=== PATIENT | female | born 1980 | race Caucasian/White ===

== ENCOUNTER 2019-04-04 00:16 | Emergency (ER) | payer OTHER, SELFPAY ==
[2019-04-04 00:20] VITALS: BP 126/79; PULSE 94; RESP 18; TEMP 36.9; O2SAT 100; BMI 24.1
--- NOTE | 2019-04-04 00:39 | ED.GENADULT ---
HPI - General Adult General Chief complaint: Nausea/Vomiting/Diarrhea Stated complaint: nausea x1 day Time Seen by Provider: 04/04/19 00:24 Source: patient Mode of arrival: ambulatory Limitations: no limitations History of Present Illness HPI narrative: 38-year-old female who was here for evaluation of 1 episode of nausea and vomiting. She is currently taking antibiotics and antifungal medications for a infection. She started Keflex today. She took her 1st dose of Keflex at approximately 0200 hours this afternoon. Tolerated without any problems. She went to go take her 2nd dose and vomited. The vomiting happen before she took the dose of antibiotics. She is concerned that potentially she was having a reaction to this medication. Related Data Previous Rx's Medication Instructions Recorded lidocaine 1 applictn TOP BID-QID PRN #10 gram 04/04/19 lorazepam [Ativan] 0.5 mg PO BID-TID PRN #14 tab 04/04/19 Allergies Allergy/AdvReac Type Severity Reaction Status Date / Time Opioids - Morphine Analogues AdvReac Verified 04/04/19 00:51 Review of Systems Constitutional Denies fever(s) and Denies headache(s) ENT Ears, Nose, Mouth, and Throat: Denies headache(s) Cardiovascular Denies chest pain and Denies dyspnea Respiratory Denies dyspnea Gastrointestinal Gastrointestinal: Denies abdominal pain, Reports nausea and Reports vomiting Musculoskeletal Denies myalgias and Denies arthralgias Integumentary/Breasts Denies rash Neurologic Denies behavioral changes and Denies headache(s) Psychiatric Denies behavioral changes Hematologic/Lymphatic Denies easy bleeding and Denies easy bruising Allergic/Immunologic Denies urticaria [facility] Medical History (Updated 04/04/19 @ 01:30 by Adonis Mathews DO) Patient denies medical problems (Acute) Social History lives independently: Yes Social History lives independently: Yes Exam Initial Vital Signs Initial Vital Signs: Vital Signs Temperature 98.5 F 04/04/19 00:20 Pulse Rate 94 H 04/04/19 00:20 Respiratory Rate 18 04/04/19 00:20 Blood Pressure 126/79 04/04/19 00:20 Pulse Oximetry 100 04/04/19 00:20 Const General: cooperative, well developed, well groomed and No acute distress Orientation: alert, awake and oriented x3 HENMT Head: normal to inspection and normocephalic Resp Effort & Inspection: normal respiratory effort Auscultation: clear to auscultation bilaterally Cardio Rate: regular rate Rhythm: regular rhythm Skin Lesions: no lesions Rashes: no rashes Neuro General: alert and awake Cognition: normal cognition Speech: speech normal Extrem General: normal to inspection and capillary refill normal Psych Appearance: grossly normal and well kempt Course Orders Ordered: Discontinued Medications Lorazepam (Ativan) 0.5 mg PO NOW ONE Stop: 04/04/19 00:39 Last Admin: 04/04/19 00:46 Dose: 0.5 mg Vital Signs - 8 hr 04/04/19 00:20 Temperature 98.5 F Pulse Rate 94 H Respiratory Rate 18 Blood Pressure 126/79 Pulse Oximetry 100 Medical Decision Making MDM Narrative Medical decision making narrative: Patient was able to tolerate her antibiotic by mouth here in the emergency department. She denied any offer for nausea medication. She states she has side effects to the medicines. I do not think that her vomiting earlier today was the result of these antibiotics. I do not feel like we need to change her antibiotic regiment. She is extremely anxious. She felt somewhat better after the Ativan. Will send her home with a short prescription for this to use as needed. Also sent home with lidocaine jelly to help with the symptoms she will follow up with her primary doctor. She is given return precautions. She expressed understanding and agreement with plan. Discharge Plan Departure Patient Disposition: Home Clinical Impression: Anxiety Vomiting Qualifiers: Vomiting type: unspecified Vomiting Intractability: non-intractable Nausea presence: with nausea Qualified Code(s): R11.2 - Nausea with vomiting, unspecified Instructions: Anxiety and Panic Attacks (Alternative Therapy), DI for Nausea -- Adult Activity Restrictions/Additional Instructions: Continue all of your current medications as directed. Take the new prescriptions were given this evening as directed. Contact your primary provider on Friday for follow-up. Return to the emergency department for any new or worsening symptoms Prescriptions: New lorazepam [Ativan] 1 mg tablet 0.5 mg PO BID-TID PRN (Reason: anxiety) Qty: 14 RF: 0 lidocaine 4 % gel 1 applictn TOP BID-QID PRN (Reason: pain) Qty: 10 RF: 0
[2019-04-04] MEDS: LORazepam 0.5 MG TABLET PO (00:46)
[2019-04-04 01:45] VITALS: BP 120/75; PULSE 85; RESP 16; O2SAT 100
== END 2019-04-04 01:45 | disposition home or self-care (01) ==
PROVIDERS: Emergency Provider Emergency Medicine
DX: F41.9 Anxiety disorder, unspecified (principal); R11.2 Nausea with vomiting, unspecified
CPT/HCPCS: 99282; 99283

== ENCOUNTER → 2019-04-23 08:23 | Outpatient (CLI) | payer OTHER, SELFPAY ==
--- NOTE | 2019-04-23 08:00 | DI.US.S_ITS ---
PATIENT NAME: SAL ZAPIEN : 1980 EXAM DATE: 04/23/2019 8:[address] JOHNNIE PATRICK D.O. CC: MODALITY: US PATIENT TYPE: Out CONTRAST MEDIA: STATION ID: [id number] FLUORO TIME: PROCEDURE: US PELVIC COMPLETE INDICATIONS: PELVIC PAIN TECHNIQUE: Real-time scanning was performed of the pelvic organs, with image documentation. Additional endovaginal scanning was necessary due to incomplete visualization of the adnexal and endometrial structures by transabdominal scanning. COMPARISON: None. FINDINGS: Transabdominal scanning: Limited scanning through the kidneys shows no hydronephrosis. No pathologic free abdominal or pelvic fluid. Endovaginal scanning: Uterus: Uterus is normal in size at 7.0 x 2.6 x 4.1 cm. The endometrium measures 5.1 mm in combined thickness. Ovaries: Ovaries are normal bilaterally measuring 3.7 x 2.1 x 2.3 cm on the right and 3.3 x 2.1 x 1.7 cm on the left. No adnexal masses. IMPRESSION: No source for pelvic pain identified. Dictated by: Levi BASURTO Interpreted: Jazzy Almanzar MD on 04/23/2019 at 10:53 Transcribed by: KATHERIN on 04/23/2019 at 15:01 Approved by: Jazzy Almanzar M.D. on 04/23/2019 at 15:12
== END ==
PROVIDERS: PCP Obstetrics & Gynecology; Visit Provider Obstetrics & Gynecology
DX: R10.2 Pelvic and perineal pain (principal)
CPT/HCPCS: 76830; 76856

== ENCOUNTER → 2019-07-09 13:06 | Outpatient (CLI) | payer OTHER, SELFPAY ==
[2019-07-09 20:00] LABS: Adenovirus F 40/41 Not Detected (Not Detect); Astrovirus Not Detected (Not Detect); Campylobacter Not Detected (Not Detect); Clostridium difficile toxin AB Not Detected (Not Detect); Cryptosporidium Not Detected (Not Detect); Cyclospora cayetanensis Not Detected (Not Detect); Entamoeba histolytica Not Detected (Not Detect); Enteroaggregative E.coli Not Detected (Not Detect); Enteropathogenic E.coli Not Detected (Not Detect); Enterotoxigenic E.coli It/st Not Detected (Not Detect); Giardia lamblia Not Detected (Not Detect); Norovirus GI/GII Not Detected (Not Detect); Plesiomonsa shigelloides Not Detected (Not Detect); Rotavirus A Not Detected (Not Detect); Salmonella Not Detected (Not Detect); Sapovirus Not Detected (Not Detect); Shiga-like toxin-prod E.coli Not Detected (Not Detect); Shigella/Enteroinvasive E.coli Not Detected (Not Detect); Vibrio Not Detected (Not Detect); Vibrio cholerae Not Detected (Not Detect); Yersinia enterocolitica Not Detected (Not Detect)
== END ==
PROVIDERS: PCP Obstetrics & Gynecology; Visit Provider Physician Assistant Medical
DX: Z20.7 Contact with and (suspected) exposure to pediculosis, acariasis and other infestations (principal); R11.0 Nausea
CPT/HCPCS: 87507

== ENCOUNTER 2019-10-17 09:41 | Emergency (ER) | payer OTHER, SELFPAY ==
[2019-10-17 09:53] VITALS: BP 138/78; PULSE 90; RESP 20; TEMP 37.6; O2SAT 100; BMI 21.2
--- NOTE | 2019-10-17 10:39 | ED.ANXIETY ---
HPI - Anxiety General Chief Complaint: Anxiety Stated Complaint: states panic attacks Time Seen by Provider: 10/17/19 09:43 Source: patient and other Mode of arrival: Ambulatory Limitations: no limitations History of Present Illness HPI narrative: 38-year-old female nonsmoker with history of anxiety presents with friend and chief complaint significant anxiety and panic which has been building over the past week. She states that she does have a history of anxiety but that her symptoms of severely ramped up due to stresses at work over the past few weeks. She does have a therapist who is aware and has a primary care provider. She was recently prescribed BuSpar and Catapres which do not seem to be helping. She woke up this morning and felt overwhelmed by her anxiety. She denies any suicidal or homicidal ideations. She has a strong support network of family and friends MD complaint: anxiety, heart racing and shortness of breath Onset (ago): day(s) Severity: moderate Quality: constant Place: home History of similar episodes: Yes Provoking factors: work/job stress Relieving factors: nothing Exacerbating factors: thinking about event Related Data Previous Rx's Medication Instructions Recorded lidocaine 1 applictn TOP BID-QID PRN #10 gram 04/04/19 lorazepam [Ativan] 0.5 mg PO BID-TID PRN #14 tab 04/04/19 Allergies Allergy/AdvReac Type Severity Reaction Status Date / Time Opioids - Morphine Analogues AdvReac Verified 10/17/19 09:53 Review of Systems Constitutional Constitutional: Denies chills, Denies fatigue, Denies fever(s), Denies frequent falls, Denies lethargy and Denies weakness Eyes Eyes: Denies change in vision, Denies eye discharge, Denies irritation and Denies loss of vision ENT Ears, Nose, Mouth, and Throat: Denies change in voice, Denies dizziness, Denies neck pain, Denies sore throat and Denies throat swelling Cardiovascular Cardiovascular: Denies chest pain, Denies irregular heart rhythm, Denies lightheadedness, Reports palpitations, Denies dyspnea, Denies dyspnea on exertion and Denies orthopnea Respiratory Respiratory: Denies cough, Denies dyspnea, Denies dyspnea on exertion and Denies wheezing Gastrointestinal Gastrointestinal: Denies abdominal pain, Denies change in bowel habits, Denies diarrhea, Denies nausea and Denies vomiting Genitourinary Genitourinary: Denies hematuria, Denies flank pain, Denies urinary incontinence and Denies urinary urgency Musculoskeletal Musculoskeletal: Denies back pain, Denies muscle weakness, Denies neck pain, Denies numbness and Denies tingling Integumentary/Breasts Skin/Breast: Denies pruritus, Denies erythema, Denies rash and Denies wounds Neurologic Neurologic: Denies behavioral changes, Denies confusion, Denies dizziness, Denies frequent falls, Denies loss of vision, Denies numbness, Denies tingling and Denies weakness Psychiatric Psychiatric: Denies anxiety, Denies behavioral changes, Denies confusion, Denies depression, Reports panic attacks, Reports paranoia, Denies homicidal ideation and Denies suicidal ideation Endocrine Endocrine: Denies fatigue, Denies flushing and Reports palpitations Hematologic/Lymphatic Hematologic/Lymphatic: Denies easy bruising Allergic/Immunologic Allergic/Immunologic: Denies urticaria, Denies throat swelling and Denies wheezing Patient History Medical History Patient denies medical problems (Acute) Social History lives independently: Yes Smoking Status: Never smoker Smoking Status: Never smoker Substance Use Type: does not use Exam Narrative Exam Narrative: GENERAL: [38] year old patient appears stated age. Well-nourished, well-developed patient, in mild distress. Anxious and tearful but demonstrates good insight and is redirectable HEAD: Atraumatic. Normocephalic. EYES: Pupils equal round and reactive. Extraocular motions intact. No scleral icterus. No injection or drainage. ENT: Nose without bleeding, purulent drainage. Throat without erythema, tonsillar hypertrophy or exudate. Airway patent. NECK: Trachea midline. Non tender CARDIOVASCULAR: Regular rate and rhythm without murmurs, gallops, or rubs. RESPIRATORY: Clear to auscultation. Breath sounds equal bilaterally. No wheezes, rales, or rhonchi. GASTROINTESTINAL: Abdomen soft, non-tender, nondistended. EXTREMITIES: No edema or joint tenderness. BACK: Nontender without deformity or crepitance. No flank tenderness. NEURO: AOx3. SKIN: No rash or erythema of visible areas Initial Vital Signs Initial Vital Signs: Vital Signs Temperature 99.6 F 10/17/19 09:53 Pulse Rate 90 10/17/19 09:53 Respiratory Rate 20 10/17/19 09:53 Blood Pressure 138/78 10/17/19 09:53 Pulse Oximetry 100 10/17/19 09:53 Course Orders Ordered: ED Orders 10/17/19 12:30 Urinalysis and Microscopic Stat Urine Drug Screen, Rapid Stat Discontinued Medications Sodium Chloride (Normal Saline 0.9%) 1,000 mls @ 1,000 mls/hr IV BOLUS ONE Stop: 10/17/19 11:10 Last Infusion: 10/17/19 12:18 Dose: 0 mls/hr Documented by: SHIMASENKay Admin: 10/17/19 10:50 Dose: 1,000 mls/hr Documented by: SHIMASENKay Vital Signs Vital signs: Vital Signs - 8 hr 10/17/19 12:24 Pulse Rate 74 Respiratory Rate 16 Blood Pressure [Right Arm] 118/84 Pulse Oximetry 100 MDM - Anxiety Lab Data Result diagrams: 10/17/19 10:43 10/17/19 10:43 Labs: Lab Results 10/17/19 10/17/19 10/17/19 Range/Units 10:43 10:43 10:43 WBC 4.6 (4.5-11.0) X10^3/uL RBC 5.00 (4.0-5.2) X10^6/uL Hgb 14.7 (12.0-16.0) g/dL Hct 42.3 (36-46) % MCV 84.7 (80-100) fL MCH 29.5 (26-34) PG MCHC 34.8 (30-36) % RDW 12.3 (11.6-14.8) % Plt Count 258 (150-400) X10^3/uL Neut % (Auto) 61.2 (50-75) % Lymph % (Auto) 30.2 (25-40) % [place] % (Auto) 7.2 (3-14) % Eos % (Auto) 0.6 L (2-4) % Baso % (Auto) 0.8 (0-2) % Neut # (Auto) 2800 (6433-2326) /uL Lymph # (Auto) 1400 (3163-9308) /uL [place] # (Auto) 300 (0-900) /uL Eos # (Auto) 0 (0-450) /uL Baso # (Auto) 0 (0-100) /uL Sodium 142 (137-145) mmol/L Potassium 3.5 (3.4-5.1) mmol/L Chloride 105 (98-107) mmol/L Carbon Dioxide 24 (22-32) mmol/L BUN 13 (7-17) mg/dL Creatinine 0.70 (0.52-1.04) mg/dL Estimated GFR > 60.0 (>60) mL/min BUN/Creatinine Ratio 18.6 (6-22) Glucose 99 (70-100) mg/dL Calcium 10.0 (8.4-10.2) mg/dL TSH 1.00 (0.47-4.68) uIU/mL Thyroxine (T4) 9.94 (5.5-11.0) ug/dL Urine Color Urine Appearance Urine pH (4.5-8.0) Ur Specific [place] (1.000-1.035) Urine Protein (Negative) Urine Glucose (UA) (Negative) g/dL Urine Ketones (NEGATIVE) Urine Occult Blood (Negative) Urine Nitrate (Negative) Urine Bilirubin (NEGATIVE) Urine Urobilinogen (0.2) E.U./dL Ur Leukocyte Esterase (NEGATIVE) Urine RBC (0-5/HPF) Urine WBC (0-5/HPF) Ur Squamous Epith Cells (0-5/HPF) Urine Bacteria (None) Ur Culture Indicated? U Opiates 300ng/mL cut (Negative) Ur Oxycodone Screen (Negative) Urine Methadone Screen (Negative) Ur Barbiturates Screen (Negative) U Tricyclic Antidepress (Negative) Ur Phencyclidine Scrn (Negative) Ur Amphetamines Screen (Negative) U Methamphetamines Scrn (Negative) Ur MDMA Scrn (Ecstasy) (Negative) U Benzodiazepines Scrn (Negative) Urine Cocaine Screen (Negative) U Marijuana (THC) Screen (Negative) 10/17/19 10/17/19 Range/Units 12:30 12:30 WBC (4.5-11.0) X10^3/uL RBC (4.0-5.2) X10^6/uL Hgb (12.0-16.0) g/dL Hct (36-46) % MCV (80-100) fL MCH (26-34) PG MCHC (30-36) % RDW (11.6-14.8) % Plt Count (150-400) X10^3/uL Neut % (Auto) (50-75) % Lymph % (Auto) (25-40) % [place] % (Auto) (3-14) % Eos % (Auto) (2-4) % Baso % (Auto) (0-2) % Neut # (Auto) (2026-7036) /uL Lymph # (Auto) (7229-2668) /uL [place] # (Auto) (0-900) /uL Eos # (Auto) (0-450) /uL Baso # (Auto) (0-100) /uL Sodium (137-145) mmol/L Potassium (3.4-5.1) mmol/L Chloride (98-107) mmol/L Carbon Dioxide (22-32) mmol/L BUN (7-17) mg/dL Creatinine (0.52-1.04) mg/dL Estimated GFR (>60) mL/min BUN/Creatinine Ratio (6-22) Glucose (70-100) mg/dL Calcium (8.4-10.2) mg/dL TSH (0.47-4.68) uIU/mL Thyroxine (T4) (5.5-11.0) ug/dL Urine Color Yellow Urine Appearance Clear Urine pH 7.0 (4.5-8.0) Ur Specific [place] <=1.005 (1.000-1.035) Urine Protein Negative (Negative) Urine Glucose (UA) Negative (Negative) g/dL Urine Ketones Negative (NEGATIVE) Urine Occult Blood Negative (Negative) Urine Nitrate Negative (Negative) Urine Bilirubin Negative (NEGATIVE) Urine Urobilinogen 0.2 (0.2) E.U./dL Ur Leukocyte Esterase Negative (NEGATIVE) Urine RBC None seen (0-5/HPF) Urine WBC None seen (0-5/HPF) Ur Squamous Epith Cells 0-1 /hpf (0-5/HPF) Urine Bacteria Occasional (0-1) (None) Ur Culture Indicated? Cult not indicated U Opiates 300ng/mL cut Negative (Negative) Ur Oxycodone Screen Negative (Negative) Urine Methadone Screen Negative (Negative) Ur Barbiturates Screen Negative (Negative) U Tricyclic Antidepress Negative (Negative) Ur Phencyclidine Scrn Negative (Negative) Ur Amphetamines Screen Negative (Negative) U Methamphetamines Scrn Negative (Negative) Ur MDMA Scrn (Ecstasy) Negative (Negative) U Benzodiazepines Scrn Negative (Negative) Urine Cocaine Screen Negative (Negative) U Marijuana (THC) Screen Negative (Negative) Discharge Plan Departure Patient Disposition: Home Clinical Impression: Acute anxiety, Panic disorder Discharge Date/Time: 10/17/19 12:53 Instructions: Anxiety Disorders Activity Restrictions/Additional Instructions: *You have been diagnosed with [ anxiety and panic attack ] *What to do: *Take medications as directed *Follow up with your primary care provider in 2-3 days, call for an appointment. Let them know you were seen in the Emergency Department and that we ask that you be seen in follow up *Return to ER if you should have any new, worsening or concerning symptoms Prescriptions: No Action lorazepam [Ativan] 1 mg tablet 0.5 mg PO BID-TID PRN (Reason: anxiety) Qty: 14 RF: 0 lidocaine 4 % gel 1 applictn TOP BID-QID PRN (Reason: pain) Qty: 10 RF: 0 Referrals: [facility] [Outside] Radha De Guzman DO [Primary Care Provider] - Stand Alone Forms: Work Release Note
[2019-10-17] MEDS: SODIUM CHLORIDE 0.9% 1,000 ML 1000 ML IV (10:50)
[2019-10-17 11:06] LABS: Add Manual Diff / Slide Review NO; Basophils Absolute Auto 0 /uL (0-100); Basophils Percent Auto 0.8 % (0-2); Eosinophils Absolute Auto 0 /uL (0-450); Eosinophils Percent Auto 0.6 % (2-4); Hematocrit 42.3 % (36-46); Hemoglobin 14.7 g/dL (12.0-16.0); Lymphocytes Absolute Auto 1400 /uL (1100-4500); Lymphocytes Percent Auto 30.2 % (25-40); Mean Corpuscular HGB Conc 34.8 % (30-36); Mean Corpuscular Hemoglobin 29.5 PG (26-34); Mean Corpuscular Volume 84.7 fL (80-100); Monocytes Absolute Auto 300 /uL (0-900); Monocytes Percent Auto 7.2 % (3-14); Neutrophils Absolute Auto 2800 /uL (1500-7000); Neutrophils Percent Auto 61.2 % (50-75); Platelet Count 258 X10^3/uL (150-400); Red Cell Distribution Width 12.3 % (11.6-14.8); White Blood Cell Count 4.6 X10^3/uL (4.5-11.0)
[2019-10-17 11:20] VITALS: BP 112/61; PULSE 64; O2SAT 100
[2019-10-17 11:20] LABS: BUN Creatinine Ratio 18.6 (6-22); Blood Urea Nitrogen 13 mg/dL (7-17); Carbon Dioxide 24 mmol/L (22-32); Chloride 105 mmol/L (98-107); Estimated Glomerular Filt Rate > 60.0 mL/min (>60); Glucose 99 mg/dL (70-100); HEMOLYSIS < 15 (0-50); Potassium 3.5 mmol/L (3.4-5.1); Sodium 142 mmol/L (137-145)
[2019-10-17 11:46] LABS: T4 Total Thyroxine 9.94 ug/dL (5.5-11.0)
--- NOTE | 2019-10-17 12:23 | PC.NURSE ---
and now with stomach pain. doesnt feel hungry, +nausea.
[2019-10-17 12:24] VITALS: BP 118/84; PULSE 74; RESP 16; O2SAT 100
[2019-10-17 12:39] LABS: Appearance Urine UA CLEAR; Bilirubin Urine UA NEGATIVE (NEGATIVE); Color Urine UA YELLOW; Glucose Urine UA NEGATIVE (Negative); Ketones Urine UA NEGATIVE (NEGATIVE); Leukocyte Esterase Urine UA NEGATIVE (NEGATIVE); Nitrite Urine UA NEGATIVE (Negative); Occult Blood Urine UA NEGATIVE (Negative); Protein Urine UA NEGATIVE (Negative); RBC Urine None Seen (0-5/HPF); Specific Gravity Urine UA <=1.005 (1.000-1.035); Urobilinogen Urine UA 0.2 E.U./dL (0.2); WBC Urine None Seen (0-5/HPF)
[2019-10-17 12:43] LABS: UR Morphine/Opiate cutoff 300 Negative (Negative); Ur Creatinine Normal (Normal); Ur Specific Gravity Normal (Normal); Urine Amphetamines Negative (Negative); Urine Barbiturates Negative (Negative); Urine Benzodiazepines Negative (Negative); Urine Cocaine Negative (Negative); Urine MDMA Negative (Negative); Urine Methadone Negative (Negative); Urine Methamphetamines Negative (Negative); Urine Oxycodone Negative (Negative); Urine Phencyclidine Negative (Negative); Urine Tetrahydrocannabinol Negative (Negative); Urine Tricyclic Antidepressant Negative (Negative); Urine pH Normal (Normal)
[2019-10-17 12:48] LABS: Bacteria Urine Occasional (0-1); Culture Indicated Urine Cult Not Indicated; Squamous Epithelial Cell Urine 0-1 /HPF (0-5/HPF)
== END 2019-10-17 12:53 | disposition home or self-care (01) ==
PROVIDERS: Emergency Provider Emergency Medicine; PCP Obstetrics & Gynecology
DX: F41.0 Panic disorder [episodic paroxysmal anxiety] (principal)
CPT/HCPCS: 36415; 80048; 80305; 81001; 84436; 84443; 85025; 96360; 99284